=== PATIENT | female | born 1995 | race Caucasian/White ===

== ENCOUNTER 2019-01-30 12:01 | Emergency (ER) | payer OTHER ==
--- NOTE | 2019-01-30 13:44 | UC ---
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 This is the first time she called in sick. She states with each illness she does get better and her symptoms resolve. Past few days worsening congestion and productive cough. No fever. No N/V/D. NO rash. Tolerating PO. Mild sinus discomfort. Has been taking several over the counter medications including flonase and decongestants. MEds; Reviewed - History of Current Complaint Chief Complaint: UCRespiratory Stated Complaint: SORE THROAT SINUS ISSUE Time Seen by Provider: 01/30/19 13:21 Pain Intensity: 1 - Allergy/Home Medications Allergies/Adverse Reactions: Allergies Allergy/AdvReac Type Severity Reaction Status Date / Time Penicillins Allergy Rash Verified 01/30/19 13:25 Sulfa (Sulfonamide Allergy Hives Verified 01/30/19 13:25 Antibiotics) Home Medications: Home Medications PARoxetine HCL TAB* [Paxil TAB*] 20 mg PO DAILY 01/30/19 [History Confirmed ] PMH/Surg Hx/FS Hx/Imm Hx Previously Healthy: Yes - Surgical History Surgical History: None - Social History Alcohol Use: None Substance Use Type: None Smoking Status (MU): Never Smoked Tobacco Review of Systems All Other Systems Reviewed And Are Negative: Yes Constitutional: Positive: Negative ENT: Positive: Sore Throat, Nasal Discharge, Sinus Congestion Respiratory: Positive: Cough Physical Exam Triage Information Reviewed: Yes Appearance: Well-Appearing Vital Signs: Initial Vital Signs Temp 98.5 F 01/30/19 13:21 Pulse 84 01/30/19 13:21 Resp 18 01/30/19 13:21 BP 100/64 01/30/19 13:21 Pulse Ox 98 01/30/19 13:21 ENT: Positive: Pharyngeal erythema, Nasal congestion, Nasal drainage, Hoarse voice, Other - clear bulging fluid b/l Neck: Positive: Supple, Nontender Respiratory: Positive: Lungs clear, Normal breath sounds Cardiovascular: Positive: RRR, No Murmur Skin Exam: Normal Course/Dx - Course Course Of Treatment: This is 23 yr old with URI symptoms Assessment Nontoxic appearing Plan Continue current supportive care Continue flonase, decongestants and antihistamine Rest and supportive care If symptoms persist or worsen, or you develop fevers, recommend follow up with your PCP or return to urgent care - Diagnoses Provider Diagnosis: Viral syndrome Discharge - Sign-Out/Discharge Documenting (check all that apply): Patient Departure All imaging exams completed and their final reports reviewed: No Studies - Discharge Plan Condition: Good Disposition: HOME Patient Education Materials: Viral Syndrome (ED) Referrals: No Primary Care Phys,NOPCP [Primary Care Provider] - Additional Instructions: Continue current supportive care Continue flonase, decongestants and antihistamine Rest and supportive care If symptoms persist or worsen, or you develop fevers, recommend follow up with your PCP or return to urgent care - Billing Disposition and Condition Condition: GOOD Disposition: Home
== END 2019-01-30 13:45 | disposition home or self-care (01) ==
LOC: UCEAST 12:01
DX: B34.9 Viral infection, unspecified (principal); Z88.0 Allergy status to penicillin; Z88.2 Allergy status to sulfonamides
CPT/HCPCS: 99201; G0463